=== PATIENT | male | born 1935 | race Caucasian/White ===

== ENCOUNTER 2020-07-31 11:21 | Emergency (ER) | payer MEDICARE, BC ==
[~2020-07-31] VITALS: Ht 177.8 cm; Wt 100.4 kg
[2020-07-31 12:12] LABS: BACTERIA,URINE MANY /HPF (0-FEW); BILIRUBIN,URINE NEG (NEG); CLARITY,URINE TURBID; COLOR,URINE YELLOW; GLUCOSE,URINE NEG (NEG); NITRITE,URINE POS (NEG); SQUAMOUS EPITHELIAL CELL,UR FEW /LPF; WBC,URINE >40 /HPF (0-4)
[2020-07-31 12:19] VITALS: BP 119/55
[2020-07-31] MEDS ORDERED: CEPH750C9 PO (12:26)
--- NOTE | 2020-07-31 12:26 | PHYS DOC ---
Past History Past Medical History: Other Additional Past Medical Histor: PULMONARY EMBOLI Past Surgical History: Other Additional Past Surgical Histo: LOWER BACK, PAST COLOSTOMY PLACEMENT AND REMOVAL Additional Smoking Information: CIGARS Alcohol Use: None Adult General Chief Complaint Chief Complaint: URINE CATHETER PROBLEM [facility] HPI Patient is a 85-year-old male with a known prostate and urinary dysfunction who normally self caths now presents emergency department due to concern for hematuria. Patient states he was attempting to self cath himself yesterday when he noted a significant amount of blood. Patient has since been telling his caretakers that he noted tearing sensation and some pain. Patient has dementia and is having difficulty conveying her entire history. Denies any fever, chills, nausea, vomiting, dizziness right now Review of Systems Review of Systems Constitutional: Denies fever or chills [] Eyes: Denies change in visual acuity, redness, or eye pain [] HENT: Denies nasal congestion or sore throat [] Respiratory: Denies cough or shortness of breath [] Cardiovascular: No additional information not addressed in HPI [] GI: Denies abdominal pain, nausea, vomiting, bloody stools or diarrhea [] : Denies dysuria or hematuria [] Musculoskeletal: Denies back pain or joint pain [] Integument: Denies rash or skin lesions [] Neurologic: Denies headache, focal weakness or sensory changes [] Endocrine: Denies polyuria or polydipsia [] All other systems were reviewed and found to be within normal limits, except as documented in this note. Allergies Allergies Allergies Coded Allergies Type Severity Reaction Last Updated Verified No Known Drug Allergies 07/31/20 No Physical Exam Physical Exam Constitutional: Well developed, well nourished, no acute distress, non-toxic appearance. [] HENT: Normocephalic, atraumatic, bilateral external ears normal, oropharynx moist, no oral exudates, nose normal. [] Eyes: PERRLA, EOMI, conjunctiva normal, no discharge. [] Neck: Normal range of motion, no tenderness, supple, no stridor. [] Cardiovascular:Heart rate regular rhythm, no murmur [] Lungs & Thorax: Bilateral breath sounds clear to auscultation [] Abdomen: Bowel sounds normal, soft, no tenderness, no masses, no pulsatile masses. [] Skin: Warm, dry, no erythema, no rash. [] Back: No tenderness, no CVA tenderness. [] Extremities: No tenderness, no cyanosis, no clubbing, ROM intact, no edema. [] Neurologic: Alert and oriented X 3, normal motor function, normal sensory function, no focal deficits noted. [] Psychologic: Affect normal, judgement normal, mood normal. [] Current Patient Data Vital Signs Vital Signs Date Time Temp Pulse Resp B/P (MAP) Pulse Ox O2 Delivery O2 Flow Rate FiO2 07/31/20 12:19 71 20 119/55 (76) 96 Room Air 07/31/20 11:25 98.1 Lab Results Laboratory Tests Test 07/31/20 11:44 Urine Collection Type Unknown Urine Color Yellow Urine Clarity Turbid Urine pH 6.0 Urine Specific [place] 1.025 Urine Protein 30 mg/dl (NEG-TRACE) Urine Glucose (UA) Neg mg/dL (NEG) Urine Ketones (Stick) Neg mg/dL (NEG) Urine Blood Mod (NEG) Urine Nitrite Pos (NEG) Urine Bilirubin Neg (NEG) Urine Urobilinogen Dipstick 1.0 mg/dL (0.2 mg/dL) Urine Leukocyte Esterase Mod (NEG) Urine RBC 6-10 /HPF (0-2) Urine WBC >40 /HPF (0-4) Urine Squamous Epithelial Cells Few /LPF Urine Bacteria Many /HPF (0-FEW) Urine Mucus Slight /LPF EKG EKG [] Radiology/Procedures Radiology/Procedures [] Heart Score Risk Factors: Risk Factors: DM, Current or recent (<one month) smoker, HTN, HLP, family history of CAD, obesity. Risk Scores: Risk Factors: DM, Current or recent (<one month) smoker, HTN, HLP, family history of CAD, obesity. Course & Med Decision Making Course & Med Decision Making Pertinent Labs and Imaging studies reviewed. (See chart for details) 85M presented with nonspecific complaints of pain on urination is known to self cath. No significant findings on genitourinary exam. At this time will test urine for urinary tract infection. Dragon Disclaimer Dragon Disclaimer This electronic medical record was generated, in whole or in part, using a voice recognition dictation system. Departure Departure: Impression: Primary Impression: UTI (urinary tract infection) Disposition: 01 DC HOME SELF CARE/HOMELESS Condition: GOOD Referrals: LUÚL CULVER MD (PCP) Patient Instructions: Urinary Tract Infection Additional Instructions: EMERGENCY DEPARTMENT GENERAL DISCHARGE INSTRUCTIONS Thank you for coming to [facility] Emergency Department (ED) today and trusting us with you care. We trust that you had a positive experience in our Emergency Department. If you wish to speak to the department management, you may call the Director at [phone]. YOUR FOLLOW UP INSTRUCTIONS ARE FOLLOWS: 1. Do you have a private Doctor? If you do not have a private doctor, please ask for a resource list of physicians or clinics that may be able to assist you with follow up care. 2. The Emergency Physicain has interpreted your x-rays. The X-Ray specialist will also review them. If there is a change in the findings, you will be notified in 48 hours when at all possible. 3. A lab test or culture has been done, your results will be reviewed and you will be notified if you need a change in treatment. ADDITIONAL INSTRUCTIONS AND INFORMATION: 1. Your care today has been supervised by a physician who is specially trained in emergency care. Many problems require more than one evaluation for a complete diagnosis and treatment. We recommend that you schedule your follow up appointment as recommended to ensure complete treatment of you illness or injury. If you are unable to obtain follow up care and continue to have a problem, or if your condition worsens, we recommend that you return to the ED. 2. We are not able to safely determine your condition over the phone nor are we able to give sound medical advice over the phone. For these safety reasons, if you call for medical advice we will ask you to come to the ED for further evaluation. 3. If you have any questions regarding these discharge instructions please call the ED at [phone]. SAFETY INFORMATION: In the interest of safety, wellness, and injury prevention; we encourage you to wear your sealbelt, if you smoke; quite smoking, and we encourage family to use a protective helmet for bicycling and other sporting events that present an increased risk for head injury. IF YOUR SYMPTOMS WORSEN OR NEW SYMPTOMS DEVELOP, OR YOU HAVE CONCERNS ABOUT YOUR CONDITION; OR IF YOUR CONDITION WORSENS WHILE YOU ARE WAITING FOR YOUR FOLLOW UP APPOINTMENT; EITHER CONTACT YOUR PRIMARY CARE DOCTOR, THE PHYSICIAN WHOSE NAME AND NUMBER YOU WERE GIVEN, OR RETURN TO THE ED IMMEDIATELY. Scripts Cephalexin (KEFLEX) 750 Mg Capsule 1 CAP PO BID for uti for 10 Days, #20 CAP 0 Refills Prov: AMINA HOANG MD 07/31/20 AMINA HOANG MD Jul 31, 2020 12:26
[2020-07-31] MEDS ORDERED: CEPHALEXIN 250 MG CAPSULE PO ONE (12:30)
== END 2020-07-31 13:20 | disposition home or self-care (01) ==
LOC: ER 11:21
DX: N39.0 Urinary tract infection, site not specified (principal); R31.9 Hematuria, unspecified; R20.2 Paresthesia of skin; F17.210 Nicotine dependence, cigarettes, uncomplicated; Z98.890 Other specified postprocedural states
CPT/HCPCS: 81001; 99283

== ENCOUNTER 2020-08-15 11:42 | Emergency (ER) | payer MEDICARE, BC ==
[~2020-08-15] VITALS: Ht 177.8 cm; Wt 83.0 kg
[~2020-08-15 11:42] MED LIST: CEPH750C9 PO
[2020-08-15 11:55] VITALS: BP 105/68
[2020-08-15] MEDS ORDERED: LIDOCAINE 2% JELLY 10ML IN APPLICATOR. MM ONE (13:45)
[2020-08-15 14:34] LABS: BACTERIA,URINE 0 /HPF (0-FEW); BILIRUBIN,URINE NEG (NEG); CLARITY,URINE HAZY; COLOR,URINE YELLOW; GLUCOSE,URINE NEG (NEG); NITRITE,URINE NEG (NEG); SQUAMOUS EPITHELIAL CELL,UR FEW /LPF; WBC,URINE 20-40 /HPF (0-4)
[2020-08-15] MEDS ORDERED: FOSFOMYCIN TROMETHAMINE 3 GM PACKET PO ONE (14:45)
--- NOTE | 2020-08-15 14:48 | PHYS DOC ---
Past History Past Medical History: Other Additional Past Medical Histor: PULMONARY EMBOLI Past Surgical History: Other Additional Past Surgical Histo: LOWER BACK, PAST COLOSTOMY PLACEMENT AND REMOVAL, bladder surgery Alcohol Use: None General Adult EDM: Chief Complaint: URINE CATHETER PROBLEM HPI: HPI: 85-year-old male PMH dementia and urinary retention with intermittent self- catheterization for the past few years, presents to the ed with biological son, reports no urine when catheterizing himself today but also states he has not had any food or anything to drink today. Believes he catheterized himself last night before going to bed. Patient was seen here a few weeks ago and prescribed antibiotics for UTI that pt has completed. Due to dementia, patient is a poor historian. Unsure if retention is related to prostate or stroke. Verbal consent given and patient's EMR was reviewed. Was seen on July 31 of this year and completed 10-day course of Keflex. Physician note reports enlarged prostate. Patient denies any associated fever, chills, flank pain, flulike symptoms, abdominal or back pain, nausea, vomiting, low back pain, hematuria, dysuria, saddle anesthesia, lower extremity weakness or sensory deficits, or abdominal swelling. Review of Systems: Review of Systems: ROS: Limited due to patient's dementia Current Medications: Current Meds: Current Medications Medications (Trade) Dose Ordered Sig/Itzel Start Time Stop Time Status Last Admin Dose Admin Lidocaine HCl (Uro-Jet) 1 isabela 1X ONCE 08/15/20 13:45 08/15/20 13:46 DC Allergies: Allergies: Allergies Coded Allergies Type Severity Reaction Last Updated Verified No Known Drug Allergies 07/31/20 No Physical Exam: PE: Constitutional: Well developed, well nourished, no acute distress, non-toxic appearance. HENT: Normocephalic, atraumatic, Eyes: EOMI, conjunctiva normal, no discharge. Neck: Normal range of motion, supple, Cardiovascular: S1/2 present, regular rhythm Lungs & Thorax: Speaking in full sentences, bilateral equal chest rise, no tachypnea or increased work of breathing Abdomen: soft, no tenderness, no distention Skin: Warm, dry, no erythema, no rash. [] Back: No midline tenderness/step-offs, no CVA tenderness. [] Extremities: No tenderness, no cyanosis, Neurologic: Alert and oriented X 3, normal motor function, normal sensory function, no focal deficits noted. [] Psychologic: Affect normal, judgement normal, mood normal. [] Current Patient Data: Labs: Laboratory Tests Test 08/15/20 13:55 Urine Collection Type Unknown Urine Color Yellow Urine Clarity Hazy Urine pH 6.0 Urine Specific [place] 1.010 Urine Protein Trace (NEG-TRACE) Urine Glucose (UA) Neg mg/dL (NEG) Urine Ketones (Stick) Neg mg/dL (NEG) Urine Blood Small (NEG) Urine Nitrite Neg (NEG) Urine Bilirubin Neg (NEG) Urine Urobilinogen Dipstick 1.0 mg/dL (0.2 mg/dL) Urine Leukocyte Esterase Small (NEG) Urine RBC 3-5 /HPF (0-2) Urine WBC 20-40 /HPF (0-4) Urine Squamous Epithelial Cells Few /LPF Urine Bacteria 0 /HPF (0-FEW) Urine Mucus Slight /LPF Vital Signs: Vital Signs Date Time Temp Pulse Resp B/P (MAP) Pulse Ox O2 Delivery O2 Flow Rate FiO2 08/15/20 11:55 98.0 74 22 105/68 (80) 97 EKG: EKG: [] Radiology/Procedures: Radiology/Procedures: [] Heart Score: C/O Chest Pain: No Risk Factors: Risk Factors: DM, Current or recent (<one month) smoker, HTN, HLP, family history of CAD, obesity. Risk Scores: Score 0 - 3: 2.5% MACE over next 6 weeks - Discharge Home Score 4 - 6: 20.3% MACE over next 6 weeks - Admit for Clinical Observation Score 7 - 10: 72.7% MACE over next 6 weeks - Early Invasive Strategies Course & Med Decision Making: Course & Med Decision Making Pertinent Labs and Imaging studies reviewed. (See chart for details) Upon arrival bladder scan had approximately 69 cc of fluid per rn. Patient drank 3 cups of water in the ED. Straight cath urinalysis with 200 ccs clear urine (no gross blood). U/A with no bacteria but multiple WBCs and small leukocyte esterase. RBC and blood have improved from prior, no further nitrates. Low suspicion for UTI but will treat with one-time dose of fosfomycin in the ED. Suspect forgetfulness with dementia and recent catheterization versus poor oral fluid intake in a well-appearing elderly demented male with strong family support. Will discharge home with strict ED return precautions were given for UTI symptoms/infection/pyelonephritis/sepsis. Encouraged urgent outpatient follow-up with PMD and urology referrals for chronic management. Life-threatening processes were considered but are low suspicion at this time, given history, physical exam and ED workup. Pt was educated on all prescription medications and adverse effects. All patient's questions were answered and pt was stable at time of discharge. Life/limb-threatening differential includes but is not limited to, elder abuse/sexual assault, blunt vs penetrating trauma, bladder or urethral injury, infection/sepsis/uti/pyelonephritis/prostatitis, penile fracture/amputation/contusion, testicular rupture or dislocation, traumatic epididymitis, or pelvic injury or fracture. I spoken with the patient and her caregivers. I explained the patient's condition, diagnoses and treatment plan based on the information available to me at this time. I have answered the patient and her caregiver's questions and addressed any concerns. The patient and her caregivers have a good understanding of patient's diagnosis, condition and treatment plan as can be expected at this point. Vital signs have been stable. Patient's condition is stable and appropriate for discharge from the emergency department. Patient will pursue further outpatient evaluation with primary care physician or other designated or consulting physician as outlined in the discharge instructions. The patient and/or caregivers are agreeable to this plan of care and follow-up instructions have been explained in detail. The patient and/or caregivers have received these instructions in written form and have expressed an understanding of the discharge instructions. The patient and/or caregivers are aware that any significant change of condition or worsening of symptoms should prompt immediate return to this or the closest emergency department or call to [facility]. Doreen Disclaimer: Doreen Disclaimer: This electronic medical record was generated, in whole or in part, using a voice recognition dictation system. Departure Departure: Impression: Primary Impression: Urinary retention Disposition: 01 DC HOME SELF CARE/HOMELESS Condition: STABLE Referrals: LULÚ CULVER MD (PCP) within 1 week for well check Patient Instructions: Clean Intermittent Catheterization, Male, Urinary Retention, Acute, Male Additional Instructions: FOLLOW UP WITH UROLOGY: [facility] [place] [address] [place] [address] APPOINTMENTS: [phone] [facility] [address] [place], [place] [id number] OR [facility] [address] [facility] [address] [place] [address] EMERGENCY DEPARTMENT GENERAL DISCHARGE INSTRUCTIONS Thank you for coming to [facility] (ED) today and trusting us with you care. We trust that you had a positivie experience in our Emergency Department. If you wish to speak to the department management, you may call the director at [phone]. YOUR FOLLOW UP INSTRUCTIONS ARE FOLLOWS: 1. Do you have a private Doctor? If you do not have a private doctor, please ask for a resource list of physicians or clinics that may be able to assist you with follow up care. 2. The Emergency Physician has interpreted your x-rays. The X-Ray specialist will also review them. If there is a change in the findings, you will be notified in 48 hours when at all possible. 3. A lab test or culture has been done, your results will be reviewed and you will be notified if you need a change in treatment. ADDITIONAL INSTRUCTIONS AND INFORMATION: 1. Your care today has been supervised by a physician who is specially trained in emergency care. Many problems require more than one evaluation for a complete diagnosis and treatment. We recommend that you schedule your follow up appointment as recommended to ensure complete treatment of you illness or injury. If you are unable to obtain follow up care and continue to have a problem, or if your condition worsens, we recommend that you return to the ED. 2. We are not able to safely determine your condition over the phone nor are we able to give sound medical advice over the phone. For these safety reasons, if you call for medical advice we will ask you to come to the ED for further evaluation. 3. If you have any questions regarding these discharge instructions please call the ED at [phone]. SAFETY INFORMATION: In the interest of safety, wellness, and injury prevention; we encourage you to wear your sealbelt, if you smoke; quite smoking, and we encourage family to use a protective helmet for bicycling and other sporting events that present an increased risk for head injury. IF YOUR SYMPTOMS WORSEN OR NEW SYMPTOMS DEVELOP, OR YOU HAVE CONCERNS ABOUT YOUR CONDITION; OR IF YOUR CONDITION WORSENS WHILE YOU ARE WAITING FOR YOUR FOLLOW UP APPOINTMENT; EITHER CONTACT YOUR PRIMARY CARE DOCTOR, THE PHYSICIAN WHOSE NAME AND NUMBER YOU WERE GIVEN, OR RETURN TO THE ED IMMEDIATELY. DINH BOURNE DO Aug 15, 2020 14:48
== END 2020-08-15 15:05 | disposition home or self-care (01) ==
LOC: ER 11:42
DX: R33.9 Retention of urine, unspecified (principal); F03.90 Unspecified dementia, unspecified severity, without behavioral disturbance, psychotic disturbance, mood disturbance, and anxiety; Z86.711 Personal history of pulmonary embolism; Z93.3 Colostomy status
CPT/HCPCS: 51702; 81001; 87086; 99284

== ENCOUNTER 2021-09-06 12:56 | Emergency (ER) | payer MEDICARE, BC ==
[~2021-09-06] VITALS: Ht 177.8 cm; Wt 86.1 kg
--- NOTE | 2021-09-06 13:08 | PHYS DOC ---
Past History Past Medical History: Other Additional Past Medical Histor: PULMONARY EMBOLI Past Surgical History: Other Additional Past Surgical Histo: LOWER BACK, PAST COLOSTOMY PLACEMENT AND REMOVAL, bladder surgery Alcohol Use: None General Adult EDM: Chief Complaint: WEAKNESS/GENERALIZED HPI: HPI: Patient is an 86-year-old male with report of several months of intermittent and progressive weakness, mostly in the morning. He has problems getting up and out of bed. He often sits in a chair or lies around. He denies any falls or acute injury. He denies any specific complaints at all. He does self cath intermittently for urinary retention. He denies abdominal pain, flank pain, fev ers or chills. Denies chest pain, dyspnea, palpitations, dizziness, headache, numbness or tingling or focal motor weakness. He ambulates with a cane. He does not want to be here, but he came here at the behest of one of his children. He has not seen his primary care physician for this issue. Review of Systems: Review of Systems: Constitutional: Denies fever or chills Eyes: Denies change in visual acuity HENT: Denies nasal congestion or sore throat Respiratory: Denies cough or shortness of breath Cardiovascular: Denies chest pain or edema GI: Denies abdominal pain, nausea, vomiting, or diarrhea : Chronic urinary retention. Musculoskeletal: Denies back pain or joint pain Integument: Denies rash Neurologic: Denies headache, focal weakness or sensory changes. Generalized, nonfocal weakness reported. Denies numbness or tingling. Denies fall, head injury or syncope Psychiatric: Denies depression or anxiety Allergies: Allergies: Allergies Coded Allergies Type Severity Reaction Last Updated Verified No Known Drug Allergies 07/31/20 No Physical Exam: PE: Constitutional: Well developed, well nourished, no acute distress, non-toxic appearance. [] HENT: Normocephalic, atraumatic, oropharynx is patent and clear, mucous membranes are moist. Eyes: PERRL, EOMI, conjunctiva normal, no discharge. No scleral icterus. No n ystagmus. Neck: Normal range of motion, no tenderness, supple, no stridor. Trachea is midline. No meningismus Cardiovascular:Heart rate regular rhythm, +2 radial and +2 posterior tibial pulses bilaterally Lungs & Thorax: Bilateral breath sounds clear to auscultation, no rales, rhonchi or wheezes Abdomen: Bowel sounds normal, soft, no tenderness, no masses, no pulsatile masses. [] Skin: Warm, dry, no erythema, no rash. [] Back: No tenderness, no CVA tenderness. Full range of motion Extremities: No tenderness, no cyanosis, no clubbing, ROM intact, no edema. [] Neurologic: Alert and oriented X 3, normal motor function, normal sensory function, no focal deficits noted. Cranial nerves II through XII grossly intact. 5/5 motor strength all 4 extremities. No limb ataxia. Speech is clear and fluent. Sensation is grossly intact. Nonfocal exam. Psychologic: Affect normal, judgement normal, mood normal. [] EKG: EKG: [] Radiology/Procedures: Radiology/Procedures: [] Heart Score: C/O Chest Pain: No Risk Factors: Risk Factors: DM, Current or recent (<one month) smoker, HTN, HLP, family history of CAD, obesity. Risk Scores: Score 0 - 3: 2.5% MACE over next 6 weeks - Discharge Home Score 4 - 6: 20.3% MACE over next 6 weeks - Admit for Clinical Observation Score 7 - 10: 72.7% MACE over next 6 weeks - Early Invasive Strategies Course & Med Decision Making: Course & Med Decision Making Pertinent Labs and Imaging studies reviewed. (See chart for details) Patient is eating food, drinking fluids, he has no complaints. He denies my algias or pain. CK is slightly elevated, though renal function is stable. I encouraged him to drink plenty of fluids, stay hydrated. He does appear to have a urinary tract infection with significant pyuria and bacteria. Urine culture is pending. He is given a first dose of Cipro here. He understands that urine culture is pending, and if there is any need to change antibiotics based on this, he will be notified. I discussed all of the findings, differential diagnosis and plan of care. I recommend he contact his PCP for follow-up. He verbalizes understanding. Doreen Disclaimer: Doreen Disclaimer: This electronic medical record was generated, in whole or in part, using a voice recognition dictation system. Departure Departure: Impression: Primary Impression: Urinary tract infection Qualified Codes: N39.0 - Urinary tract infection, site not specified Additional Impression: Generalized weakness Disposition: HOME / SELF CARE / HOMELESS Condition: STABLE Referrals: LULÚ CULVER MD (PCP) Patient Instructions: Urinary Tract Infection, Weakness Additional Instructions: Return to the ER for chest pain, shortness of breath, abdominal pain, uncontrolled nausea and vomiting, temperature 100.4 or higher, if you fall or injure yourself, if you develop any focal weakness or for any other concerns. If there is any need to change your antibiotics based on your culture result, yo u should be notified within about 48 hours. Please contact your primary care doctor to discuss your symptoms further. You should discuss physical therapy, as this may help with some of your weakness issues. Scripts Ciprofloxacin Hcl (CIPROFLOXACIN HCL) 500 Mg Tablet 1 TAB PO BID for urinary tract infection for 7 Days, #14 TAB Prov: BESS BOOTH DO 09/06/21 BESS BOOTH DO Sep 06, 2021 13:08
[2021-09-06 14:08] LABS: BASO % 0 % (0-3); EOS # 0.1 x10^3/uL (0.0-0.7); EOS % 1 % (0-3); HEMATOCRIT 39.5 % (39.0-53.0); HEMOGLOBIN 13.2 g/dL (13.0-17.5); LYMPH # 3.2 x10^3/uL (1.0-4.8); LYMPH % 24 % (24-48); MEAN CORPUSCULAR HEMOGLOBIN 29 pg (25-35); MEAN CORPUSCULAR HGB CONC 33 g/dL (31-37); MEAN CORPUSCULAR VOLUME 88 fL (79-100); MONO # 0.8 x10^3/uL (0.0-1.1); MONO % 6 % (0-9); NEUT # 9.1 x10^3uL (1.8-7.7); NEUT % 68 % (31-73); PLATELET COUNT 236 x10^3/uL (140-400); RED BLOOD COUNT 4.48 x10^6/uL (4.30-5.70); RED CELL DISTRIBUTION WIDTH 13.3 % (11.5-14.5); WHITE BLOOD COUNT 13.4 x10^3/uL (4.0-11.0)
[2021-09-06 14:19] LABS: CALCIUM 8.8 mg/dL (8.5-10.1); CREATININE 1.5 mg/dL (0.7-1.3); GFR 44.2; POTASSIUM 4.2 mmol/L (3.5-5.1)
[2021-09-06 14:24] LABS: MAGNESIUM 2.4 mg/dL (1.8-2.4)
[2021-09-06 15:29] VITALS: BP 123/76
[2021-09-06 15:30] LABS: CLARITY,URINE HAZY; COLOR,URINE YELLOW; GLUCOSE,URINE NEG (NEG); NITRITE,URINE NEG (NEG); UROBILINOGEN,URINE 0.2 mg/dL (0.2 mg/dL)
[2021-09-06 15:31] LABS: BACTERIA,URINE MOD /HPF (0-FEW); SQUAMOUS EPITHELIAL CELL,UR FEW /LPF; WBC,URINE >40 /HPF (0-4)
[2021-09-06] MEDS ORDERED: CIPR500T2 PO (15:44)
[2021-09-06] MEDS ORDERED: CIPROFLOXACIN HCL 500 MG TABLET PO ONE (15:45)
== END 2021-09-06 15:55 | disposition home or self-care (01) ==
LOC: ER 12:56
DX: N39.0 Urinary tract infection, site not specified (principal); R53.1 Weakness; Z86.711 Personal history of pulmonary embolism
CPT/HCPCS: 36415; 80048; 81001; 82550; 83735; 84100; 85025; 87077; 87086; 87186; 99284